=== PATIENT | male | born 1975 | race Caucasian/White ===

== ENCOUNTER 2016-07-05 04:00 | Emergency (ER) | payer BC ==
[~2016-07-05] VITALS: Ht 188 cm; Wt 94.8 kg
[2016-07-05 04:02] VITALS: TEMP 36.4; Ht 188 cm; Wt 94.8 kg
[2016-07-05] MEDS ORDERED: ONDANSETRON INJ 2 MG/ML 2 ML VIAL IV STA (04:15)
[2016-07-05] MEDS ORDERED: SODIUM CHLORIDE 0.9% 1000ML 1,000 ML IV STA (04:15)
[2016-07-05] MEDS ORDERED: HYDROmorphone INJ 1 MG/ML SYR IV STA (04:15)
--- NOTE | 2016-07-05 04:37 | EMERGENCY ROOM VISIT NOTE ---
History Report prepared by Osman: Tk Ahumada Under the Supervision of: Dr. Genevieve Lee M.D. First contact with patient: 04:15 Chief Complaint: ABDOMINAL PAIN Stated Complaint: SEVERE ABDOMINAL PAIN History of Present Illness The patient is a 40 year old male who presents to the Emergency Room with complaints of constant abdominal starting around an hour prior to arrival. The patient currently rates his discomfort as a 10/10 in severity. The patient states that he was sleeping when he started to feel the pain. He states that the pain is in the lower abdomen and radiates into his flank. The patient states that it slightly radiates into his testicles. The patient additionally complains of vomiting. The patient denies having any other medical problems. Source of History: patient Onset: an hour prior to arrival Position: abdomen Symptom Intensity: 10/10 Timing: constant Associated Symptoms: + vomiting Note: Associated symptoms: flank pain Review of Systems See HPI for pertinent positives & negatives. A total of 10 systems reviewed and were otherwise negative. Past Medical & Surgical Medical Problems: (1) Kidney stone Social History Smoking Status: Never Smoker Marital Status: Housing Status: lives with family Occupation Status: employed Current/Historical Medications Scheduled PRN Hydrocodone/Acetaminophen 5MG/325MG (Success 5MG/325MG), 1-2 TABLETS PO Q6H PRN for Pain Allergies Coded Allergies: No Known Allergies (Unverified , 07/05/16) Physical Exam Vital Signs Date Time Temp Pulse Resp B/P Pulse Ox O2 Delivery O2 Flow Rate FiO2 07/05/16 08:32 78 126/87 07/05/16 07:47 89 140/106 07/05/16 05:57 61 16 134/90 95 Room Air 07/05/16 04:28 72 07/05/16 04:02 36.4 82 20 157/99 100 Room Air Physical Exam Vital signs reviewed. General: Well-appearing male, in no significant distress. HEENT: No scleral icterus, PERRLA, neck supple. Atraumatic. Cardiovascular: Regular rate and rhythm, no extra sounds. Pulmonary: Clear to auscultation bilaterally, normal work of breathing. Abdomen: Soft, mild tenderness to palpation of the right side, nondistended, positive bowel sounds. Musculoskeletal: No CVA tenderness. Atraumatic, no peripheral edema. Neurologic: Patient awake alert and oriented x 3, full strength in all 4 extremities. Cranial nerves 2 through 12 grossly intact. Skin: Warm, dry, no rash Medical Decision & Procedures ER Provider Diagnostic Interpretation: CT results as stated below per my review and radiologist interpretation: CT ABDOMEN & PELVIS: There is mild right-sided hydroureteronephrosis secondary to an obstructing 3 mm stone in the urinary bladder at the right UVJ. There is a punctate nonobstructing stone in the lower pole of the left kidney. The left-sided collecting system is normal. There is hepatic steatosis. Gallbladder, spleen, pancreas, and adrenal glands unremarkable. Urinary bladder and prostate are unremarkable. There is no bowel obstruction, appendicitis, or diverticulitis. No acute osseous findings. Radiologist: Jennifer Bourne M.D. Laboratory Results 07/05/16 04:10 Red Blood Count 5.85, Mean Corpuscular Volume 78.5, Mean Corpuscular Hemoglobin 27.2, Mean Corpuscular Hemoglobin Concent 34.6, Mean Platelet Volume 9.6, Neutrophils (%) (Auto) 39.0, Lymphocytes (%) (Auto) 43.4, Monocytes (%) (Auto) 11.4, Eosinophils (%) (Auto) 5.4, Basophils (%) (Auto) 0.7, Neutrophils # (Auto ) 3.24, Lymphocytes # (Auto) 3.61, Monocytes # (Auto) 0.95, Eosinophils # (Auto ) 0.45, Basophils # (Auto) 0.06 07/05/16 04:10 Test 07/05/16 04:10 07/05/16 05:00 White Blood Count 8.32 K/uL (4.8-10.8) Red Blood Count 5.85 M/uL (4.7-6.1) Hemoglobin 15.9 g/dL (14.0-18.0) Hematocrit 45.9 % (42-52) Mean Corpuscular Volume 78.5 fL (80-100) Mean Corpuscular Hemoglobin 27.2 pg (25-34) Mean Corpuscular Hemoglobin Concent 34.6 g/dl (32-36) Platelet Count 267 K/uL (130-400) Mean Platelet Volume 9.6 fL (7.4-10.4) Neutrophils (%) (Auto) 39.0 % Lymphocytes (%) (Auto) 43.4 % Monocytes (%) (Auto) 11.4 % Eosinophils (%) (Auto) 5.4 % Basophils (%) (Auto) 0.7 % Neutrophils # (Auto) 3.24 K/uL (1.4-6.5) Lymphocytes # (Auto) 3.61 K/uL (1.2-3.4) Monocytes # (Auto) 0.95 K/uL (0.11-0.59) Eosinophils # (Auto) 0.45 K/uL (0-0.5) Basophils # (Auto) 0.06 K/uL (0-0.2) RDW Standard Deviation 37.4 fL (36.4-46.3) RDW Coefficient of Variation 13.3 % (11.5-14.5) Immature Granulocyte % (Auto) 0.1 % Immature Granulocyte # (Auto) 0.01 K/uL (0.00-0.02) Anion Gap 9.0 mmol/L (3-11) Est Creatinine Clear Calc Drug Dose 103.8 ml/min Estimated GFR () 96.8 Estimated GFR (Non- 83.5 BUN/Creatinine Ratio 11.6 (10-20) Calcium Level 8.9 mg/dl (8.5-10.1) Total Bilirubin 0.6 mg/dl (0.2-1) Direct Bilirubin < 0.1 mg/dl (0-0.2) Aspartate Amino Transf (AST/SGOT) 29 U/L (15-37) Alanine Aminotransferase (ALT/SGPT) 93 U/L (12-78) Alkaline Phosphatase 77 U/L (45-117) Total Protein 7.4 gm/dl (6.4-8.2) Albumin 4.3 gm/dl (3.4-5.0) Lipase 161 U/L (73-393) Urine Color YELLOW Urine Appearance CLOUDY (CLEAR) Urine pH 5.0 (4.5-7.5) Urine Specific [place] 1.014 (1.000-1.030) Urine Protein TRACE (NEG) Urine Glucose (UA) NEG (NEG) Urine Ketones NEG (NEG) Urine Occult Blood 3+ (NEG) Urine Nitrite NEG (NEG) Urine Bilirubin NEG (NEG) Urine Urobilinogen NEG (NEG) Urine Leukocyte Esterase NEG (NEG) Urine WBC (Auto) 1-5 /hpf (0-5) Urine RBC (Auto) >30 /hpf (0-4) Urine Hyaline Casts (Auto) 1-5 /lpf (0-5) Urine Epithelial Cells (Auto) 5-10 /lpf (0-5) Urine Bacteria (Auto) NEG (NEG) Urine Yeast (Auto) (NONE PRSENT) Date/Time Source Procedure Growth Status 07/05/16 05:00 Urine , Clean Catch Urine Culture - Final NO GROWTH - LESS THAN 1,000 COLONIES/ML Complete Laboratory results per my review. Medications Administered Medications (Trade) Dose Ordered Sig/Suresh Route Start Time Stop Time Status Last Admin Dose Admin Sodium Chloride (Nss 1000ml) 1,000 ml @ 999 mls/hr Q1H1M STAT IV 07/05/16 04:15 07/05/16 05:15 DC 07/05/16 04:21 999 MLS/HR Hydromorphone HCl (Dilaudid Inj) 1 mg NOW STAT IV 07/05/16 04:15 07/05/16 04:17 DC 07/05/16 04:21 1 MG Ondansetron HCl (Zofran Inj) 4 mg NOW STAT IV 07/05/16 04:15 07/05/16 04:17 DC 07/05/16 04:21 4 MG Hydromorphone HCl (Dilaudid Inj) 1 mg NOW STAT IV 07/05/16 04:31 07/05/16 04:32 DC 07/05/16 05:54 1 MG ED Course 1414: Past medical records reviewed. The patient was evaluated in room A4. A complete history and physical examination was performed. 1415: Zofran Inj 4mg IV, Dilaudid Inj 1mg IV, Sodium Chloride 1000 ml @ 999 mls/ hr IV 0431: Dilaudid Inj 1mg IV 0549: Upon reevaluation, the patient appeared to have improvement of his symptoms. I discussed findings with him. He verbalized agreement of the treatment plan. He was discharged home. Medical Decision Differential diagnosis: renal colic, appendicitis, diverticulitis, mesenteric ischemia, aortic pathology, infections, inflammatory bowel disease, PUD, biliary pathology, UTI, as well as others were entertained. This pt was evaluated and appeared to be in no distress. IV access was obtained and lab work was drawn. Pt was hydrated with NSS, given IV dialudid and zofran. CT was performed and reveals a 3mm distal RIGHT ureteral calculus. UA is c/w a stone, no sign of infection at this time. Pt was informed of the findings. He was given a Rx for norco and asked to drink plenty of fluids. He will f/u with his PCP this week and urology if needed. He will return to the ED for worsening of symptoms or any medical concerns. Impression Primary Impression: Renal colic on right side Scribe Attestation The scribe's documentation has been prepared under my direction and personally reviewed by me in its entirety. I confirm that the note above accurately reflects all work, treatment, procedures, and medical decision making performed by me. Departure Information Dispostion Home / Self-Care Prescriptions Hydrocodone/Acetaminophen 5MG/325MG (Success 5MG/325MG) Tab 1-2 TABLETS PO Q6H Y for Pain, #20 TAB Prov: Genevieve Lee M.D. 07/05/16 Referrals No Doctor, Assigned (PCP) Forms Call Back Authorization, HOME CARE DOCUMENTATION FORM, IMPORTANT VISIT INFORMATION Patient Instructions My [facility] Additional Instructions Diagnosis: renal colic, kidney stone Strain all of your urine and take the stone for analysis. Increase fluids. Ibuprofen 600 mg every 6 hours as needed for pain (Maximum 3000 mg Tylenol in 24 hr period). Success 1-2 tablets every 4-6 hrs as needed for worse pain. No driving, working, or alcohol use with norco. Follow up with your urologist if it has not passed in 5-7 days or sooner for worsening symptoms. Follow up sooner for fever >101, vomiting, or significant increase in pain not controlled with medication.
[2016-07-05 04:49] LABS: BASO % 0.7 %; BASO ABS # 0.06 K/uL (0-0.2); COMPLETE YES; EOS % 5.4 %; HEMATOCRIT 45.9 % (42-52); IG% 0.1 %; LYMPH % 43.4 %; LYMPH ABS # 3.61 K/uL (1.2-3.4); MEAN CELL VOLUME 78.5 fL (80-100); MEAN CORPUSCULAR HEMOGLOBIN 27.2 pg (25-34); MEAN CORPUSCULAR HGB CONC 34.6 g/dl (32-36); MEAN PLATELET VOLUME 9.6 fL (7.4-10.4); MONO % 11.4 %; PLATELET COUNT 267 K/uL (130-400); RED BLOOD COUNT 5.85 M/uL (4.7-6.1); WHITE BLOOD COUNT 8.32 K/uL (4.8-10.8)
[2016-07-05] MEDS: HYDROmorphone INJ 1 MG/ML SYR IV STA ×2 (05:05→05:54)
[2016-07-05 05:07] LABS: ALT/SGPT 93 U/L (12-78); AST/SGOT 29 U/L (15-37); BLOOD UREA NITROGEN 13 mg/dl (7-18); BUN/CREATININE RATIO 11.6 (10-20); CALCIUM 8.9 mg/dl (8.5-10.1); CARBON DIOXIDE 26 mmol/L (21-32); CHLORIDE 108 mmol/L (98-107); GLUCOSE 102 mg/dl (70-99); POTASSIUM 3.8 mmol/L (3.5-5.1); SODIUM 143 mmol/L (136-145)
[2016-07-05 05:10] LABS: ALKALINE PHOSPHATASE 77 U/L (45-117)
[2016-07-05] MEDS ORDERED: HYDR-5688 PO (05:40)
[2016-07-05 05:47] LABS: URINE APPEARANCE CLOUDY (CLEAR); URINE BILIRUBIN NEG (NEG); URINE COLOR YELLOW; URINE NITRITE NEG (NEG); URINE SPECIFIC GRAVITY 1.014 (1.000-1.030); UROBILINOGEN NEG (NEG); ZZUR CULT IF INDIC CLEAN CATCH YES
[2016-07-05 05:48] LABS: MANUAL MICROSCOPIC REQUIRED? NO; REVIEW REQ? YES
[2016-07-05 05:57] VITALS: O2SAT 95
--- NOTE | 2016-07-05 07:42 | DIAGNOSTIC IMAGING REPORT ---
CT SCAN OF THE ABDOMEN AND PELVIS WITHOUT CONTRAST CLINICAL HISTORY: Flank pain. Suspected renal calculus. COMPARISON STUDY: No previous studies for comparison. TECHNIQUE: CT scan of the abdomen and pelvis was performed from the lung bases to the proximal femurs. Images are reviewed in the axial, sagittal, and coronal planes. IV contrast was not administered for this examination. CT DOSE: 663.98 mGy.cm FINDINGS: Lower chest: The heart is normal in size and configuration, without pericardial effusion. The lung bases and pleural spaces are clear. Liver: There is mild hepatic steatosis. No focal masses are visualized. Gallbladder: Unremarkable. Spleen: Normal in size and attenuation. Pancreas: Unremarkable. Adrenal glands: Unremarkable. Kidneys: There is a 2 mm lower pole left renal calculus. There is mild right-sided hydronephrosis. There is a 3.5 mm calculus at the level the right ureterovesical junction. Bowel: There are no transition zones indicate bowel obstruction. The appendix appears normal. There is no acute diverticulitis. Peritoneum: There is no intraperitoneal free air or abdominal ascites. Vasculature: The abdominal aorta is normal in course and caliber. Adenopathy: None. Pelvic viscera: The bladder, and pelvic viscera are unremarkable. Skeletal structures: No destructive osseous lesions are seen. IMPRESSION: 1. 3.5 mm calculus at the level of the right ureterovesical junction with mild secondary obstructive changes 2. 2 mm nonobstructing left renal calculus 3. No evidence of bowel obstruction. No evidence of free air Electronically signed by: Torey Siu M.D. 07/05/2016 7:39 AM Dictated Date/Time: 07/05/2016 7:36 AM
[2016-07-05 08:32] VITALS: BP 126/87; PULSE 78
== END 2016-07-05 08:57 | disposition home or self-care (01) ==
LOC: C.EDB 04:01 → C.EDA 08:57
DX: N23 Unspecified renal colic (principal); N20.0 Calculus of kidney; Z87.442 Personal history of urinary calculi